=== PATIENT | male | born 1940 | race Caucasian/White ===

== ENCOUNTER 2021-01-05 11:59 | Outpatient (NON) | payer MEDICARE, SELFPAY ==
[2021-01-05 12:38] LABS: Add Urine Microscopic? YES; Appearance Urine Clear (Clear); Bilirubin Urine Negative (Negative); Blood Urine Negative (Negative); Color Urine Yellow (Yellow); Glucose Urine UA Negative (Negative); Ketones Urine Negative (Negative); Leukocyte Esterase Ur Trace LEU/UL (Negative); Nitrate Urine Negative (Negative); Protein Urine Negative (Negative); Urobilinogen Urine 0.2 mg/dL (0.2-1.0)
[2021-01-05 13:03] LABS: Bacteria Urine 2+ /hpf; RBC Urine 0-2 /hpf (0-2); Squamous Epithelial Cell Urine None seen /hpf (Few)
[2021-01-05 13:04] LABS: Mucus Urine Few /lpf
== END 2021-01-05 12:00 ==
DX: N30.00 Acute cystitis without hematuria (principal)
CPT/HCPCS: 81001; 87086

== ENCOUNTER 2022-06-27 20:08 | Emergency (ER) | payer MEDICARE, SELFPAY ==
--- NOTE | ~2022-06-27 | XR_ITS ---
EXAM: XR shoulder LT min 2V, XR clavicle LT DATE: 06/27/2022 20:34 (accession [id number]), 06/27/2022 20:33 (accession [id number]) HISTORY: trauma, FALL TODAY, PROXIMAL ANTERIOR PAIN . COMPARISON: None available. FINDINGS: Normal mineralization. Comminuted, segmental fracture of the distal third left clavicle, w ith posterior and inferior angulation of the main and segmental fragments and mild inferior displacem ent of the distal clavicle. No lytic or blastic lesion. Joint spaces are maintained. No erosion or pe riosteal change. Soft tissues within normal limits. IMPRESSION: Comminuted, segmental fracture of the distal left clavicle, with posterior inferior angul ation of the segmental fragment and and inferior displacement of the distal clavicle. Reviewed, dictated and finalized at location K. IMPRESSION: Comminuted, segmental fracture of the distal left clavicle, with po sterior inferior angulation of the segmental fragment and and inferior displace ment of the distal clavicle.
[2022-06-27 20:09] VITALS: BP 142/73; PULSE 79; RESP 18; TEMP 36.6; O2SAT 94
--- NOTE | 2022-06-27 20:12 | ED_ITS ---
HPI - Fall General Chief Complaint: Fall Stated Complaint: LEFT CLAVICLE INJURY W/ DEFORMITY History of Present Illness HPI Narrative: Pt was pulling shirt over his head and lost balance and fell backward against door. Pt denies LOC or neck pain. Pt says he has some pain in his left co llarbone when he pushes up to get up otherwise can move it fine without pain. Related Data Allergies Allergy/AdvReac Type Severity Reaction Status Date / Time Penicillins Allergy Unknown Unverified 03/13/15 11:30 Review of Systems Review of Systems: All systems reviewed & are unremarkable except as noted in HPI and below Exam Const: General: healthy appearing Nutritional Appearance: well nourished Orientation/consciousness: patient oriented x3 Limitations: no limitations HENMT: Head: normal to inspection Eyes: Conjunctivae: conjunctivae normal EOM: EOMs intact bilaterally Neck: Neck: normal visual inspection Chest: Chest palpation & inspection: normal inspection of the chest Resp: Effort & Inspection: normal respiratory effort Auscultation: clear to auscultation bilaterally Cardio: Rate: regular rate Rhythm: regular rhythm GI: Auscultation: normal bowel sounds Skin: General skin exam: normal color Neuro: General: patient oriented x3, moves all extremities and no focal motor deficits Speech: normal speech Extrem: General: no clubbing, cyanosis or edema Other: tender with crepitance distal clavicle Psych: Mental Status: mental status grossly normal Affect: normal affect Attitude: cooperative Discharge Plan Discharge Follow-up/Referrals: Arnoldo,Jason Garza MD [Primary Care Provider] -
[2022-06-27 21:26] VITALS: BP 129/74; PULSE 65; RESP 18; O2SAT 98
== END 2022-06-27 21:40 | disposition home or self-care (01) ==
PROVIDERS: Emergency Provider Emergency Medicine; PCP Internal Medicine
DX: S42.032A Displaced fracture of lateral end of left clavicle, initial encounter for closed fracture (principal); W22.01XA Walked into wall, initial encounter
CPT/HCPCS: 73000; 73030; 99283; 99284; A4565